=== PATIENT | female | born 2000 | race Caucasian/White ===

== ENCOUNTER 2022-08-11 11:44 | Emergency (ER) | payer OTHER, SELFPAY ==
[2022-08-11 11:54] VITALS: BP 137/80; PULSE 89; RESP 20; TEMP 37; O2SAT 100
--- NOTE | 2022-08-11 12:43 | ED.WOUNDLAC ---
HPI - Wound/Laceration General Chief Complaint: Wound/Laceration Stated Complaint: left hand middle finger lac Time Seen by Provider: 08/11/22 12:43 Source: patient Mode of arrival: ambulatory Limitations: no limitations History of Present Illness HPI narrative: 22-year-old female presenting for complaint of laceration to left middle finger after injury today. 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 Endorses immediately applying pressure to the site, did not clean site [employer]. Denies decreased ROM. UTD tetanus. Related Data Home Medications Medication Instructions Recorded Confirmed fluoxetine 20 mg tablet 20 mg PO DAILY 08/11/22 08/11/22 sertraline 100 mg tablet 100 mg PO BID 08/11/22 08/11/22 Allergies Allergy/AdvReac Type Severity Reaction Status Date / Time No Known Allergies Allergy Verified 08/11/22 12:39 Review of Systems Review of Systems: CONSTITUTIONAL: Denies body aches, fever, chills, or sweats. CARDIOVASCULAR: Denies chest pain, palpitations, or edema. RESPIRATORY: Denies cough or dyspnea. GASTROINTESTINAL: Denies abdominal pain, nausea, vomiting, or diarrhea. SKIN: reports laceration MUSCULOSKELETAL: Denies back pain, joint pain, or myalgia. NEUROLOGIC: Denies headache, numbness, tingling, or weakness. PMFSH Comments At time of signature, I have reviewed and agree with nursing past medical, surgical, social and family history unless otherwise noted. Please see nursing chart for further information. There is no relevant family history pertinent to the presenting complaint Exam Narrative: GENERAL: Well-appearing CHEST: Clear to auscultation. HEART: Regular rate and rhythm. SKIN: Warm, dry. 2cm irregular laceration to left 3rd finger distal phalanx; no nail involvement, continues to bleed. CMS intact. NEURO: Alert and oriented x3. Course Course Emergency Course: Patient is aware of diagnosis, understands and agrees to treatment plan. Anticipatory guidance given. Patient agrees to follow-up as directed and is aware of reasons to seek care at the emergency department. Portions of this record may have been created with voice recognition software Level of Care: Express Care Visit Vital Signs Vital signs: Vital Signs Temperature 98.6 F 08/11/22 11:54 Pulse Rate 89 08/11/22 11:54 Respiratory Rate 20 08/11/22 11:54 Blood Pressure 137/80 08/11/22 11:54 Pulse Oximetry 100 08/11/22 11:54 Oxygen Delivery Room Air 08/11/22 11:54 Temperature 98.6 F 08/11/22 11:54 Pulse Rate 89 08/11/22 11:54 Respiratory Rate 20 08/11/22 11:54 Blood Pressure 137/80 08/11/22 11:54 Pulse Oximetry 100 08/11/22 11:54 Oxygen Delivery Room Air 08/11/22 11:54 Reviewed Procedures Laceration left 3rd finger: Date: 08/11/22 Size (cm): 2 Description: irregular and clean Depth: simple, single layer Local Anesthetic: lidocaine 1% (digital block) Amount of anesthesia used (mL): 6 Pre-repair: wound explored and irrigated ====== Skin Level ====== Skin layer closed with: nylon Size (cm): 5-0 Number of sutures: 3 Technique: simple, interrupted ====== Subcutaneous Layer ====== ====== Muscle Layer ====== ====== Tendon Layer ====== Dressing: wound cleansed prior to digital block. Edges approximated with sutures. Hemostasis obtained. Patient tolerated well. MDM - Wound/Laceration MDM Narrative Medical decision making narrative: Patient tolerated wound closure. Advised supportive measures and signs/symptoms to go to the ER. Pt is appropriate for outpt treatment and f/u. Differential Diagnosis Differential diagnosis: Likely laceration, abrasion and avulsion of skin Discharge Plan Discharge Clinical Impression: Finger laceration Patient Disposition: Home, Self-Care Condition: Stable Instructions: Antibiotic Form, F
== END 2022-08-11 14:10 | disposition home or self-care (01) ==
PROVIDERS: Emergency Provider Nurse Practitioner Family
DX: S61.213A Laceration without foreign body of left middle finger without damage to nail, initial encounter (principal); W27.2XXA Contact with scissors, initial encounter; Y99.0 Civilian activity done for income or pay; F41.9 Anxiety disorder, unspecified; F32.A Depression, unspecified
CPT/HCPCS: 12001; 99213; G0463